=== PATIENT | male | born 1955 | race Caucasian/White ===

== ENCOUNTER → 2021-09-24 | Outpatient (CLI) | payer BC ==
[2021-09-24 23:35] LABS: Basophils # (A) 0.06 X 10*3/uL (0.00-0.10); Basophils % (A) 1.1 %; Eosinophils # (A) 0.14 X 10*3/uL (0.04-0.35); Eosinophils % (A) 2.7 %; HGB 14.2 g/dL (13.0-17.0); Immature Grans, Automated 0.2 %; Lymphocytes # (A) 1.38 X 10*3/uL (0.90-5.00); Lymphocytes % (A) 26.4 %; MCH 28.8 pg (27.0-32.0); MCHC 32.3 g/dL (32.0-37.0); MCV 89.2 fL (80.0-97.0); Mean Platelet Volume 10.3 fL (9.5-12.2); Monocytes % (A) 9.6 %; NRBC Per 100 WBC 0 /100 WBCS (0.0-0.0); Neutrophils # (A) 3.13 X 10*3/uL (1.80-7.70); Platelet Count 276 X 10*3/uL (140-440); RBC 4.93 X 10*6/uL (4.40-5.60); WBC 5.22 X 10*3/uL (4.50-10.00)
== END | disposition home or self-care (01) ==
LOC: LABWHC1 15:51
PROVIDERS: ATTEND Surgery
DX: Z01.812 Encounter for preprocedural laboratory examination (principal); K42.9 Umbilical hernia without obstruction or gangrene; K40.90 Unilateral inguinal hernia, without obstruction or gangrene, not specified as recurrent
CPT/HCPCS: 36415; 83036; 85025; 93005

== ENCOUNTER 2021-10-01 10:19 | Day surgery (SDC) | payer MEDICARE, BC ==
[2021-09-29 13:42] VITALS: BMI 25.8
--- NOTE | 2021-09-30 19:48 | P.GSHP ---
History of Present Illness H&P Date: 09/30/21 Chief Complaint: Umbilical and inguinal hernia 66-year-old male seen 1 month ago with complaints of a left inguinal hernia and umbilical hernia. Umbilical hernia present for the last 5 years or so. Inguinal hernia is new in the last 2-3 months. Complains of mild discomfort at both locations. Describes crampy abdominal pain and gassiness at times. Symptoms less 1 inguinal hernia is reduced. No history of previous hernias. Patient quite active. Past Medical History Past Medical History: Hypertension History of Any Multi-Drug Resistant Organisms: None Reported Additional Past Surgical History / Comment(s): Pin R leg, cysto Past Anesthesia/Blood Transfusion Reactions: No Reported Reaction Smoking Status: Never smoker - Past Family History Mother Family Medical History: No Reported History Medications and Allergies Home Medications Medication Instructions Recorded Confirmed Type Lisinopril [Zestril] 10 mg PO HS 09/29/21 09/29/21 History Allergies Allergy/AdvReac Type Severity Reaction Status Date / Time No Known Allergies Allergy Verified 09/29/21 13:44 Surgical - Exam Physical exam: General: Well-developed, well-nourished HEENT: Normocephalic, sclerae nonicteric Abdomen: Nontender, nondistended, nondistended, incarcerated moderate-sized umbilical hernia mildly tender, reducible left inguinal hernia, no palpable right inguinal hernia Extremities: No edema Neuro: Alert and oriented Assessment and Plan (1) Inguinal hernia Narrative/Plan: 66-year-old male with symptomatic umbilical and left inguinal hernia. We'll proceed with the da Susanne assisted laparoscopic repair left inguinal hernia with mesh, possible open, possible bilateral with open repair umbilical hernia with possible mesh. Risks of bleeding, infection, recurrence, bladder and bowel injury, numbness, nerve injury, conversion to an open procedure were discussed with the patient. The patient understands and wishes to proceed. Status: Acute Code(s): K40.90 - UNIL INGUINAL HERNIA, W/O OBST OR GANGR, NOT SPCF RECUR SNOMED Code(s): 468333616
[~2021-10-01 10:19] MED LIST: ACETAMINOPHEN TAB 500 MG TAB PO PRN; HEPARIN SODIUM,PORCINE/PF 5,000 UNIT/0.5 ML SYRINGE SQ PRN
[2021-10-01] MEDS ORDERED: ONDANSETRON 4 MG/2 ML VIAL ONE (11:01)
[2021-10-01 11:16] LABS: Glucose,Whole Blood 81 mg/dL (75-99)
[2021-10-01] MEDS ORDERED: LACTATED RINGERS 1,000 ML IV ONE ×2 (11:21→14:30)
[2021-10-01] MEDS ORDERED: TAMSULOSIN 0.4 MG CAP.ER.24H PO ONE (11:21)
[2021-10-01] MEDS ORDERED: ONDANSETRON 4 MG/2 ML VIAL IVP ONE (11:22)
[2021-10-01] MEDS ORDERED: DEXAMETHASONE SOD PHOSPHATE 4 MG/ML 1 ML VIAL IVP ONE (11:22)
[2021-10-01] MEDS ORDERED: fentaNYL (PF) 50 MCG/ML 2 ML AMP IV ONE (11:32)
[2021-10-01] MEDS ORDERED: MIDAZOLAM 2 MG/2 ML VIAL IV ONE (11:32)
--- NOTE | 2021-10-01 11:45 | P.ANPRN ---
Procedure Note - Anesthesia - Nerve Block Performed Bilateral Erector Spinae Time Out Performed: Yes (:) Date of Procedure: 10/01/21 Procedure Start Time: Procedure Stop Time: Location of Patient: PreOp Indication: Acute Post-Operative Pain, Requested by Surgeon Sedation Type: Sedate with meaningful contact maintained Preparation: Sterile Prep Position: Prone Catheter: None Needle Types: Pajunk Needle Gauge: 21 Ultrasound used to visualize needle placement: Yes Ultrasound used to observe medication spread: Yes Injectate: 0.5% Ropivacaine (see comment for volume) (15cc + 10cc PF Normal saline each side) Blood Aspirated: No Pain Paresthesia on Injection Noted: No Resistance on Injection: Normal Image Stored and Saved: Yes Events: Uneventful and Well Tolerated
[2021-10-01] MEDS ORDERED: fentaNYL (PF) 50 MCG/ML 2 ML AMP ONE ×2 (12:45→14:51)
[2021-10-01] MEDS ORDERED: ROPIVACAINE 5 MG/ML 30 ML VIAL ONE ×2 (12:45→14:51)
[2021-10-01] MEDS ORDERED: HYDROmorphone (PF) 1 MG/ML ONE (12:45)
[2021-10-01] MEDS ORDERED: NEOSTIGMINE 1 MG/ML 10 ML VIAL ONE (12:45)
[2021-10-01] MEDS ORDERED: LIDOCAINE 1% INJ 10MG/ML (20 ML MDV) ONE ×2 (12:45→14:51)
[2021-10-01] MEDS ORDERED: SODIUM CHLORIDE 0.9% (PF) 10 ML VIAL ONE ×2 (12:45→14:51)
[2021-10-01] MEDS ORDERED: GLYCOPYRROLATE 0.2 MG/ML 2 ML VIAL ONE ×2 (12:45→14:51)
[2021-10-01] MEDS ORDERED: ROCURONIUM 10 MG/ML (5 ML VIAL) IV ONE (12:45)
[2021-10-01] MEDS ORDERED: PROPOFOL 10 MG/ML 20 ML VIAL IV ONE ×2 (12:45→14:51)
[2021-10-01] MEDS ORDERED: ESMOLOL 100 MG/10 ML VIAL ONE (12:45)
[2021-10-01] MEDS ORDERED: BUPIVACAINE (PF) 0.25% 30 ML VIAL SQ ONE (13:25)
[2021-10-01] MEDS ORDERED: PHENYLEPHRINE-0.9% NACL SYG 1,000 MCG/10 ML SYRINGE ONE (14:51)
[2021-10-01] MEDS ORDERED: diphenhydrAMINE 50 MG/ML 1 ML VIAL ONE (14:51)
[2021-10-01] MEDS ORDERED: MIDAZOLAM 2 MG/2 ML VIAL ONE (14:51)
--- NOTE | 2021-10-01 15:30 | P.OP ---
Date of Procedure: 10/01/21 Procedure(s) Performed: PREOPERATIVE DIAGNOSIS: Incarcerated left inguinal hernia, reducible umbilical hernia POSTOPERATIVE DIAGNOSIS: Same PROCEDURE: Laparoscopic da Susanne assisted repair incarcerated left inguinal hernia with mesh, open repair umbilical hernia SURGEON: Dr. Neely ANESTHESIA: General OPERATIVE PROCEDURE DETAILS: Patient was placed in the operating table in the supine position. The patient was placed under general anesthesia. The abdomen was prepped and draped in usual sterile fashion. A curvilinear incision was made above the umbilicus. The hernia sac was carefully dissected down to the level of the fascia where the hernia sac was excised. The defect in the fascia measured 2 cm x 1 cm. 2 Ethibond sutures were placed laterally and the 8 mm camera port was inserted. Insufflation took place to 15 mmHg. An 8 mm trocar was placed into the peritoneal cavity. 2 additional 8 mm trochars were placed in the right upper quadrant and left upper quadrant under visualization. The robotic arms were then brought in and docked into place. The fenestrated bipolar was used in the left arm and the laparoscopic demetra was utilized in the right arm. A 30 8 mm scope was used in the up position. The peritoneal cavity was inspected. The patient had a large incarcerated left inguinal hernia. The omentum was adherent to the peritoneum in that area. Some of the omental adhesions were divided. The peritoneum was incised in a horizontal fashion cephalad to the internal inguinal ring. Following that careful dissection of the preperitoneal space took place. This took place using both electrocautery, sharp dissection but primarily blunt dissection. Visualization of the pubic tubercle and Mando's ligament took place medially. Full dissection took place laterally as well. The hernia sac was fully dissected. A large lipoma cord was also removed and later sent to pathology. Once we had adequate space the extra-large Bard 3-D mid mesh was advanced into the preperitoneal space and flattened out appropriately to cover all potential hernia sites. The mesh was sutured medially above the pubic symphysis using a running 20 absorbable V lock suture. The peritoneal defect was then closed using a absorbable 2-0 VLok suture. The hernia sac was incorporated into the p eritoneal closure to help prevent future recurrence. The pneumoperitoneum was then evacuated. The umbilical hernia fascial defect was then closed using [id number] Ethibond sutures. No mesh was utilized. The umbilicus was tacked down to the fascia using 3-0 Vicryl sutures. The subcutaneous tissues were closed using 3-0 Vicryl sutures. All skin incision sites were closed using 4-0 Monocryl sutures. Skin glue was then applied. Umbilical HERNIA CHARACTERISTICS: Length: 2 cm Width: 1 cm Type: Umbilical TYPE OF MESH USED: Bard 3-D mid 5 x 7" LOCATION OF MESH: Preperitoneal FIXATION: 20V lock suture medially PREOPERATIVE DISCUSSION ON SMOKING CESSASTION: Yes PREOPERATIVE DISCUSSION ON MORBID OBESITY: Yes PREOPERATIVE DISCUSSION ON APPROPRIATE USE OF NARCOTIC USE: Yes DISPOSITION: Stable to recovery room
[2021-10-01 15:31] VITALS: TEMP 96.8
[2021-10-01 16:17] VITALS: RESP 16
[2021-10-01] MEDS ORDERED: KETOROLAC 15 MG/ML 1 ML VIAL ONE (16:25)
[2021-10-01] MEDS ORDERED: KETOROLAC 15 MG/ML 1 ML VIAL IVP ONE (16:30)
[2021-10-01 17:30] VITALS: BP 139/67; PULSE 86
[2021-10-01] MEDS ORDERED: ACETAMINOPHEN TAB 325 MG TAB PO SCH (18:00)
[2021-10-01] MEDS ORDERED: IBUPROFEN 600 MG TAB PO SCH (18:30)
== END 2021-10-01 18:16 | disposition home or self-care (01) ==
LOC: OR 10:19
PROVIDERS: ATTEND Surgery
DX: K42.9 Umbilical hernia without obstruction or gangrene (principal); K40.30 Unilateral inguinal hernia, with obstruction, without gangrene, not specified as recurrent; I10 Essential (primary) hypertension; Z98.890 Other specified postprocedural states; Z79.899 Other long term (current) drug therapy; Z79.890 Hormone replacement therapy; E07.9 Disorder of thyroid, unspecified; Z82.49 Family history of ischemic heart disease and other diseases of the circulatory system; Z83.49 Family history of other endocrine, nutritional and metabolic diseases
CPT/HCPCS: 64999; 86900; 86901; 86850; 88302; 36415; 49650; 49652; C1781; J2250; J1200; J1100; J2710; J0690; J2405; J2001; J3010; J1170; J2795; J1885; J2370; J2704; J1644

== ENCOUNTER → 2023-08-11 | Outpatient (CLI) | payer MEDICARE, BC ==
--- NOTE | 2023-08-11 08:55 | MR ---
EXAMINATION TYPE: MR Prostate wo/w con DATE OF EXAM: 08/11/2023 COMPARISON: None IMAGE QUALITY: Good. INDICATION: Elevated PSA. PSA: 6.34 ng/ml on July 20, 2023 increased from 4.81 on September 22, 2022 Recent Biopsy and Date: None Pathology Report (If Applicable): n/a TECHNIQUE: Examination was performed using a 3T MRI without an endorectal coil. Multiparametric imaging was perf ormed with T2 mutliplanar sequences, axial diffusion weighted imaging and dynamic contrast enhanced i maging, utilizing 7.5 mL intravenous Gadavist gadolinium contrast. FINDINGS: PROSTATE VOLUME: 5.0 cm SI x 4.2 cm AP x 5.0 cm LR Vol= 55.0 cc PSA DENSITY: 0.12 ng/ml/cc Enlarged prostate gland is present. The peripheral zone is thinned without areas increased signal on diffusion weighted imaging or suspicious areas of diminished signal on ADC mapping. Central zone show s heterogeneity without discrete T2 hypointense lesion or area of increased signal on diffusion-weigh jonathon imaging. Prostate capsule is maintained. Seminal vesicles are symmetric and unremarkable axial im age 18. No free fluid in the pelvis. Bladder shows poor distention with mild trabeculation. No abnorm al wall thickening is seen. No suspicious bowel dilatation. No abnormal pelvic adenopathy. IMPRESSION: Enlarged prostate gland consistent with BPH. A focus of clinically significant cancer is not identified. Highest Assessment Category: 1 MRI Stage: T0 N0 M0 based on review of pelvic images. False negative rates for MRI range from 5-20% depending on risk profile. Assessment Categories: 1 ? Very low (clinically significant cancer is highly unlikely to be present) 2 ? Low (clinically significant cancer is unlikely to be present) 3 ? Intermediate (the presence of clinically significant cancer is equivocal) 4 ? High (clinically significant cancer is likely to be present) 5 ? Very high (clinically significant cancer is highly likely to be present) Locations: PZ = peripheral zone; TZ = transition zone CZ=central zone; AFS = anterior fibromuscular stroma a=anterior half (i.e. PZa=anterior half of peripheral zone); pm= posterior medial (i.e PZpm) pl = postero-lateral (i.e. PZpl); p = posterior half (i.e. TZp) ; a = anterior half (i.e TZa or P Za) Other: N=no or no; E= equivocal; Y=yes EPE = extraprostatic extension NVB = neurovascular bundle NA = not applicable/not available
== END | disposition home or self-care (01) ==
LOC: RADMRIMAIN 06:02
PROVIDERS: ATTEND Family Medicine
DX: N40.0 Benign prostatic hyperplasia without lower urinary tract symptoms (principal); R97.20 Elevated prostate specific antigen [PSA]
CPT/HCPCS: 72197; A9585

== ENCOUNTER → 2023-10-19 | Outpatient (CLI) | payer MEDICARE, BC ==
--- NOTE | 2023-10-19 19:45 | US ---
EXAMINATION TYPE: US scrotum with doppler. Grayscale and color Doppler Duplex imaging performed of lio zelaya scrotum. DATE OF EXAM: 10/19/2023 COMPARISON: NONE CLINICAL INDICATION: Male, 68 years old with history of N50.89 OTHER SPECIFIED DISORDERS OF THE MALE GENIT; Left testicle swelling x 2 months; Patient denies any other signs, symptoms, or relevant histo ry. EXAM MEASUREMENTS: TESTICLES: Right Testicle: 2.9 x 2.7 x 2.2 cm Left Testicle: 4.2 x 2.6 x 2.5 cm EPIDIDYMIS HEAD: Right Epididymis: 0.7 x 0.9 x 0.6 cm Left Epididymis: 0.8 x 0.8 x 1.0 cm Doppler performed to assess for testicular vascularity; good bilateral color flow and waveforms are s een. There is no evidence of testicular torsion. Presence of hydroceles: L>R Presence of varicoceles: No Echogenic area inferior to testicle = 0.6 x 0.4 x 0.4 cm IMPRESSION: 1. Bilateral hydroceles. Some debris may be within the hydrocele.
== END | disposition home or self-care (01) ==
LOC: RADUSWWP 06:49
PROVIDERS: ATTEND Family Medicine
DX: N43.3 Hydrocele, unspecified (principal); N50.89 Other specified disorders of the male genital organs
CPT/HCPCS: 76870; 93975